=== PATIENT | male | born 2000 | race Caucasian/White ===

== ENCOUNTER 2024-05-17 03:40 | Emergency (ER) | payer BC, SELFPAY ==
[2024-05-17 03:44] VITALS: BP 142/79; PULSE 108; RESP 18; TEMP 37.2; O2SAT 99
[2024-05-17 06:23] VITALS: BP 142/88; PULSE 101; RESP 16; TEMP 36.8; O2SAT 100
[2024-05-17 06:26] VITALS: BP 136/86; BP 138/65; BP 154/79; PULSE 109; PULSE 120; PULSE 96
[2024-05-17 06:27] LABS: Basophils Percent Auto 0.1 % (0.2-1.2); Hematocrit 45.8 % (42.0-52.0); Hemoglobin 15.4 g/dL (14.0-18.0); Immature Granulocyte Absolute 0.05 K/mm3 (0.00-0.031); Immature Granulocyte Percent A 0.5 % (0-0.5); Lymphocytes Absolute Auto 0.28 K/mm3 (0.9-3.2); Lymphocytes Percent Auto 2.9 % (18.3-44.2); Mean Corpuscular HGB Conc 33.6 g/dl (32-36); Mean Corpuscular Hemoglobin 29.1 pg (26-34); Mean Corpuscular Volume 86.4 fl (80-100); Mean Platelet Volume 9.2 fl (7.4-10.4); Monocytes Absolute Auto 0.4 K/mm3 (0.1-0.6); Neutrophils Percent Auto 92.5 % (45.5-73.1); Platelet Count Result 231 k/mm3 (150-375); Red Cell Distribution Width 12.5 % (11.5-14.5); White Blood Count 9.7 K/mm3 (4.5-10.0)
--- NOTE | 2024-05-17 06:31 | PC.NURSE ---
Patient declined a straight catheter for a urine specimen
[2024-05-17 06:39] LABS: Anion Gap 14 mmol/L (4-12); Blood Urea Nitrogen 21 mg/dL (9-20); Carbon Dioxide 26 mmol/L (22-30); Chloride 100 mmol/L (98-107); Estimated CRCL calculation 117 ml/min; Potassium 4.2 mmol/L (3.4-5.0); Sodium 140 mmol/L (137-145)
[2024-05-17 06:40] LABS: Alanine Aminotransferase 53 U/L (6-50); Albumin Level 5.2 g/dL (3.5-5.1); Alkaline Phosphatase 82 U/L (38-126); Aspartate Amino Transferase 34 U/L (17-59); Bilirubin,Total 0.8 mg/dL (0.2-1.3); Calcium 9.5 mg/dL (8.4-10.2); Estimated Glomerular Filt Rate > 60; Glucose 135 mg/dL (65-110); Lipase 54 U/L (23-300)
[2024-05-17] MEDS: ONDANSETRON INJ 4 MG/2 ML VIAL IV PUSH (06:48)
[2024-05-17] MEDS: SODIUM CHLORIDE 0.9% IV 1,000 ML 999 ML IV CONT (06:49)
--- NOTE | 2024-05-17 07:34 | ED.GENADULT ---
HPI - General Adult General Chief complaint: Nausea/Vomiting/Diarrhea Stated complaint: vomiting Time Seen by Provider: 05/17/24 06:54 History of Present Illness HPI narrative: 23-year-old male presented to the emergency department for evaluation for nausea vomiting and diarrhea. Patient states that symptoms started last night and have begun to improve. Patient was treated with [facility] emergency department and at time of evaluation patient states he feels improved. At time of evaluation patient denied any abdominal pain. Patient appears to be in no distress. Related Data Allergies Allergy/AdvReac Type Severity Reaction Status Date / Time amoxicillin Allergy Hives Verified 05/17/24 03:41 codeine Allergy Hives Verified 05/17/24 03:47 Review of Systems Review of Systems: All systems reviewed & are unremarkable except as noted in HPI and below Exam Narrative: APPEARANCE: Well appearing, no pain, no distress, well-nourished. HEAD: normocephalic, atraumatic. EYES: PERRLA/EOMI, conjunctivae clear. NOSE: Normal no drainage EARS:TMS clear with good light reflex. THROAT: Pharynx clear, no exudate. NECK: Supple. No adenopathy, no masses. RESPIRATORY: Airway patent, respirations nonlabored. Clear to auscultation bilaterally, no rales, rhonchi, wheezing. CARDIOVASCULAR: Regular rate and rhythm without murmurs rubs or gallops. ABDOMINAL: Soft, nontender, nondistended, normal bowel sounds MUSCULOSKELETAL: Moves all extremities. Strength/ROM intact, No edema, No calf tenderness. NEURO: Alert. Cranial nerves II through XII intact. Grossly intact SKIN: Warm, dry. Normal Color Course Course Emergency Course: Patient did feel improved with treatment Vital Signs Vital signs: Vital Signs Temperature 99.0 F 05/17/24 03:44 Pulse Rate 108 H 05/17/24 03:44 Respiratory Rate 18 05/17/24 03:44 Blood Pressure 142/79 H 05/17/24 03:44 Pulse Oximetry 99 05/17/24 03:44 Temperature 98.2 F 05/17/24 06:23 Pulse Rate 82 05/17/24 09:38 Respiratory Rate 16 05/17/24 09:38 Blood Pressure 119/66 05/17/24 09:38 Pulse Oximetry 99 05/17/24 09:38 Medical Decision Making [facility] Narrative Medical decision making narrative: 23-year-old male presenting emergency department for evaluation for persistent nausea and vomiting that has begun to improve. Patient is afebrile with no leukocytosis and a stable hemoglobin. Patient has no significant abnormalities on his CMP lipase was negative. UA showed no underlying evidence infection. Patient did feel improved in the emergency department. Patient's abdomen is soft nontender. Patient will be discharged home with instructions for clear liquid diet and will be provided Zofran for nausea control. Differential Diagnosis Differential Diagnosis: Nausea, vomiting diarrhea, gastroenteritis Vital Signs Vital Signs: Vital Signs Temperature 99.0 F 05/17/24 03:44 Pulse Rate 108 H 05/17/24 03:44 Respiratory Rate 18 05/17/24 03:44 Blood Pressure 142/79 H 05/17/24 03:44 Pulse Oximetry 99 05/17/24 03:44 Temperature 98.2 F 05/17/24 06:23 Pulse Rate 82 05/17/24 09:38 Respiratory Rate 16 05/17/24 09:38 Blood Pressure 119/66 05/17/24 09:38 Pulse Oximetry 99 05/17/24 09:38 Lab Data Lab results reviewed: Yes I reviewed the patient's lab results. 05/17/24 06:21 05/17/24 06:21 Labs: Lab Results 05/17/24 05/17/24 Range/Units 06:21 08:16 WBC 9.7 (4.5-10.0) K/mm3 RBC 5.30 (4.6-6.20) M/mm3 Hgb 15.4 (14.0-18.0) g/dL Hct 45.8 (42.0-52.0) % MCV 86.4 (80-100) fl MCH 29.1 (26-34) pg MCHC 33.6 (32-36) g/dl RDW 12.5 (11.5-14.5) % Plt Count 231 (150-375) k/mm3 MPV 9.2 (7.4-10.4) fl Immature Gran % (Auto) 0.5 (0-0.5) % Neut % (Auto) 92.5 H (45.5-73.1) % Lymph % (Auto) 2.9 L (18.3-44.2) % [place] % (Auto) 4.0 (2.6-8.5) % Eos % (Auto) 0.0 (0-4.4) % Baso % (Auto
[2024-05-17 08:24] LABS: Add Urine Microscopic? NO; Appearance Urine Clear (Clear); Bilirubin Urine Negative (Negative); Blood Urine Negative (Negative); Color Urine Yellow (Yellow); Glucose Urine UA Negative (Negative); Ketones Urine Negative (Negative); Leukocyte Esterase Ur Negative LEU/UL (Negative); Nitrate Urine Negative (Negative); Protein Urine Negative (Negative); Specific Grav Ur 1.027 (1.001-1.035); Urobilinogen Urine 0.2 mg/dL (<2.0); pH Urine 5.5 (5.0-9.0)
[2024-05-17 08:59] VITALS: BP 129/65; PULSE 93; RESP 18; O2SAT 99
[2024-05-17 09:38] VITALS: BP 119/66; PULSE 82; RESP 16; O2SAT 99
== END 2024-05-17 09:39 | disposition home or self-care (01) ==
PROVIDERS: Emergency Medicine; Emergency Provider Emergency Medicine
DX: K52.9 Noninfective gastroenteritis and colitis, unspecified (principal)
CPT/HCPCS: 36415; 80053; 81003; 83690; 85025; 96361; 96374; 99284; J2405; J7030